=== PATIENT | female | born 1995 | race Caucasian/White ===

== ENCOUNTER 2023-04-18 15:18 | Inpatient (IN) | payer MEDICAID ==
[~2023-04-18 15:18] MED LIST: Bupivacaine 0.25% 10 ML SDV ONE
[2023-04-18] MEDS ORDERED: Nalbuphine HCl 10 MG/ 1ML Amp IVPUSH PRN (15:47)
[2023-04-18] MEDS ORDERED: Ondansetron 4 MG/2 ML SDV IVPUSH PRN (15:47)
[2023-04-18] MEDS ORDERED: Lidocaine 1% 50 ML MDV INJECT PRN (15:47)
[2023-04-18] MEDS ORDERED: Oxytocin/Lactated Ringers 10 UNIT/1,000 ML BAG IV SCH ×2 (16:00)
[2023-04-18 16:07] LABS: BASOPHILS ABSOLUTE AUTO 0.1 K/mm3 (0.0-0.2); BASOPHILS PERCENT AUTO 0.3 % (0.0-1.0); EOSINOPHILS PERCENT AUTO 0.1 % (0.0-6.0); HEMATOCRIT 40.3 % (37.0-47.0); HEMOGLOBIN 14.4 gm/dl (12.0-16.0); IMMATURE GRAN ABSOLUTE AUTO 0.17 K/mm3 (0.00-0.05); IMMATURE GRAN PERCENT AUTO 0.7 % (0.0-0.4); LYMPHOCYTES ABSOLUTE AUTO 1.9 K/mm3 (1.0-4.8); LYMPHOCYTES PERCENT AUTO 7.6 % (24.0-44.0); MEAN CORPUSCULAR HGB CONC 35.7 g/dl (32.0-36.0); MEAN CORPUSCULAR VOLUME 89.6 fl (83.0-99.0); MEAN PLATELET VOLUME 11.1 fl (9.4-12.3); MONOCYTES ABSOLUTE AUTO 1.5 K/mm3 (0.0-0.8); MONOCYTES PERCENT AUTO 5.9 % (0.0-8.0); NEUTROPHILS ABSOLUTE AUTO 21.5 K/mm3 (1.8-7.7); NEUTROPHILS PERCENT AUTO 85.4 % (41.0-71.0); PLATELET COUNT,PLT 270 K/mm3 (150-400); WHITE BLOOD CELL COUNT,WBC 25.18 K/mm3 (3.9-11.3)
[2023-04-18 17:02] LABS: SLIDE REVIEW ABNORMAL SMEAR
[2023-04-18] MEDS: Lactated Ringers 1,000 ML IV SCH ×4 (17:12→23:24)
[2023-04-18] MEDS ORDERED: diphenhydrAMINE 50 MG/ML SDV IVPUSH PRN (17:23)
[2023-04-18] MEDS ORDERED: fentaNYL 100 MCG/2 ML SDV EPIDUR PRN (17:23)
[2023-04-18] MEDS ORDERED: Bupivacaine/fentaNYL/NS 100 ML Bag EPIDUR PRN (17:23)
[2023-04-18] MEDS ORDERED: ePHEDrine 50 MG/ML SDV IVPUSH PRN (17:23)
[2023-04-18] MEDS ORDERED: Metoclopramide 10 MG/2 ML SDV IVPUSH ONE (23:00)
[2023-04-18] MEDS ORDERED: Citric Acid/Sodium Citrate Solution 30 ML Cup PO ONE (23:00)
[2023-04-18] MEDS ORDERED: Lactated Ringers 1,000 ML IV SCH (23:00)
[2023-04-18] MEDS ORDERED: ceFAZolin 2 GM in Sodium Chloride 0.9% 50 ML IV ONE (23:00)
[2023-04-18] MEDS ORDERED: Sodium Chloride 0.9% 10 ML Syringe FLUSH PRN (23:00)
[2023-04-18] MEDS ORDERED: Lactated Ringers 1,000 ML ONE (23:01)
[2023-04-18] MEDS ORDERED: Oxytocin 10 Units/1 ML SDV ONE (23:01)
[2023-04-18] MEDS ORDERED: Ondansetron 4 MG/2 ML SDV ONE (23:01)
[2023-04-18] MEDS ORDERED: Lidocaine 2% with EPINEPHrine 1:200,000 20 ML SDV ONE (23:03)
[2023-04-18] MEDS ORDERED: Sodium Bicarbonate 8.4% 50 MEQ/50 ML SDV ONE (23:03)
[2023-04-18] MEDS ORDERED: Azithromycin 500 MG in Sodium Chloride 0.9% 250 ML IV ONE (23:05)
[2023-04-18] MEDS ORDERED: ceFAZolin 2 GM Vial ONE (23:05)
[2023-04-18] MEDS ORDERED: Morphine PF 10 MG/10 ML SDV ONE (23:07)
[2023-04-18] MEDS ORDERED: Azithromycin 500 MG Vial ONE (23:13)
[2023-04-18] MEDS ORDERED: Sodium Chloride 0.9% 250 ML ONE (23:14)
[2023-04-18] MEDS ORDERED: fentaNYL 100 MCG/2 ML SDV ONE (23:43)
[2023-04-18] MEDS ORDERED: Phenylephrine 1% 10 MG/ML SDV ONE (23:45)
[2023-04-19] MEDS ORDERED: diphenhydrAMINE 50 MG/ML SDV IVPUSH PRN ×2 (00:01→00:53)
[2023-04-19] MEDS ORDERED: fentaNYL 100 MCG/2 ML SDV IVPUSH PRN (00:01)
[2023-04-19] MEDS ORDERED: Ondansetron 4 MG/2 ML SDV IVPUSH PRN (00:01)
[2023-04-19] MEDS ORDERED: Meperidine 50 MG/ML Vial IVPUSH PRN (00:01)
[2023-04-19] MEDS ORDERED: Oxytocin 10 Units/1 ML SDV ONE (00:02)
[2023-04-19] MEDS ORDERED: Meperidine 50 MG/ML Vial ONE (00:10)
[2023-04-19] MEDS ORDERED: Lactated Ringers 1,000 ML ONE (00:13)
[2023-04-19] MEDS ORDERED: Naloxone 0.4 MG/ML SDV IVPUSH PRN (00:53)
[2023-04-19] MEDS ORDERED: ePHEDrine 50 MG/ML SDV IVPUSH PRN (00:53)
[2023-04-19] MEDS ORDERED: Acetaminophen/oxyCODONE 325-5 MG Tab PO PRN (00:53)
[2023-04-19] MEDS ORDERED: Dextrose 5%-Lactated Ringers 1,000 ML IV SCH (01:00)
[2023-04-19] MEDS: Ketorolac 30 MG/ML SDV IVPUSH SCH ×3 (04:23→16:18)
[2023-04-19] MEDS: ceFAZolin 1 GM in Sodium Chloride 0.9% 50 ML IV SCH ×2 (06:19→14:41)
[2023-04-19] MEDS ORDERED: Sodium Chloride 0.9% 10 ML Syringe FLUSH SCH (09:00)
[2023-04-19] MEDS: Prenatal Multivitamin with Calcium/Folic Acid/Iron Tab PO SCH (09:53)
[2023-04-19] MEDS: Docusate Sodium 100 MG Cap PO SCH ×2 (09:53→21:38)
[2023-04-19 12:09] LABS: BASOPHILS ABSOLUTE AUTO 0.1 K/mm3 (0.0-0.2); BASOPHILS PERCENT AUTO 0.2 % (0.0-1.0); EOSINOPHILS PERCENT AUTO 0.1 % (0.0-6.0); HEMATOCRIT 32.8 % (37.0-47.0); IMMATURE GRAN ABSOLUTE AUTO 0.21 K/mm3 (0.00-0.05); IMMATURE GRAN PERCENT AUTO 0.8 % (0.0-0.4); LYMPHOCYTES ABSOLUTE AUTO 1.7 K/mm3 (1.0-4.8); LYMPHOCYTES PERCENT AUTO 6.4 % (24.0-44.0); MEAN CORPUSCULAR HEMOGLOBIN 32.3 pg (28.0-32.0); MEAN CORPUSCULAR HGB CONC 35.4 g/dl (32.0-36.0); MEAN CORPUSCULAR VOLUME 91.4 fl (83.0-99.0); MEAN PLATELET VOLUME 10.9 fl (9.4-12.3); MONOCYTES ABSOLUTE AUTO 1.9 K/mm3 (0.0-0.8); MONOCYTES PERCENT AUTO 7.2 % (0.0-8.0); NEUTROPHILS ABSOLUTE AUTO 23.1 K/mm3 (1.8-7.7); NEUTROPHILS PERCENT AUTO 85.3 % (41.0-71.0); RED BLOOD CELL COUNT 3.59 M/mm3 (4.10-5.30); WHITE BLOOD CELL COUNT,WBC 27.05 K/mm3 (3.9-11.3)
[2023-04-19 12:38] LABS: HEMOGLOBIN 11.6 gm/dl (12.0-16.0)
[2023-04-19 12:39] LABS: PLATELET COUNT,PLT 195 K/mm3 (150-400)
[2023-04-19 12:41] LABS: SLIDE REVIEW ABNORMAL SMEAR
[2023-04-19] MEDS ORDERED: Ketorolac 30 MG/ML SDV IVPUSH ONE (16:15)
[2023-04-19] MEDS: Simethicone 80 MG Tab.Chew PO PRN ×2 (17:12→21:38)
[2023-04-19] MEDS: Ibuprofen 600 MG Tab PO SCH (21:38)
[2023-04-20] MEDS ORDERED: Acetaminophen/oxyCODONE 325-5 MG Tab PO ONE (00:15)
[2023-04-20] MEDS: Ibuprofen 600 MG Tab PO SCH ×2 (04:41→10:41)
[2023-04-20] MEDS ORDERED: Acetaminophen/oxyCODONE 325-5 MG Tab PO PRN (06:00)
[2023-04-20 06:15] LABS: HEMATOCRIT 29.5 % (37.0-47.0); HEMOGLOBIN 10.2 gm/dl (12.0-16.0); MEAN CORPUSCULAR HEMOGLOBIN 32.1 pg (28.0-32.0); MEAN CORPUSCULAR HGB CONC 34.6 g/dl (32.0-36.0); MEAN CORPUSCULAR VOLUME 92.8 fl (83.0-99.0); MEAN PLATELET VOLUME 10.2 fl (9.4-12.3); PLATELET COUNT,PLT 167 K/mm3 (150-400); RED BLOOD CELL COUNT 3.18 M/mm3 (4.10-5.30); WHITE BLOOD CELL COUNT,WBC 21.42 K/mm3 (3.9-11.3)
[2023-04-20 07:08] LABS: BAND PERCENT MAN 1 % (0-10); BASOPHILS PERCENT MAN 1 (0.1-1.2); EOSINOPHILS PERCENT MAN 2 % (0.7-5.8); LYMPHOCYTES % ATYPICAL MANUAL 0 %; LYMPHOCYTES PERCENT MAN 6 % (20-40); MONOCYTES PERCENT MAN 3 % (2-10)
[2023-04-20 07:13] LABS: PLATELET COUNT ESTIMATE ADEQUATE; TOXIC GRANULATION 1+ SLIGHT
[2023-04-20] MEDS: Docusate Sodium 100 MG Cap PO SCH (10:41)
[2023-04-20] MEDS: Prenatal Multivitamin with Calcium/Folic Acid/Iron Tab PO SCH (10:41)
[2023-04-20] MEDS ORDERED: Ibuprofen 600 MG Tab PO SCH (17:00)
== END 2023-04-20 15:10 | disposition home or self-care (01) | DRG 787 ==
LOC: JD.OBCHECK 15:18 → JD.OB 15:20 → JD.OBCHECK 16:00 → INTOOBSV 18:52 → OBSVTOIN 18:52 → JD.OB 18:53 → OBSVTOIN 23:00 → JD.OB 23:01
PROVIDERS: ADMIT Obstetrics & Gynecology; ATTEND Obstetrics & Gynecology
PROC: 10D00Z1 Extraction of Products of Conception, Low, Open Approach (ICD-10-PCS; principal; 2023-04-19)
PROC: 3E0R3BZ Introduction of Anesthetic Agent into Spinal Canal, Percutaneous Approach (ICD-10-PCS; 2023-04-19)
PROC: 00HU33Z Insertion of Infusion Device into Spinal Canal, Percutaneous Approach (ICD-10-PCS; 2023-04-19)
DX: O62.1 Secondary uterine inertia (principal); Z3A.37 37 weeks gestation of pregnancy; Z37.0 Single live birth; O98.32 Other infections with a predominantly sexual mode of transmission complicating childbirth; O76 Abnormality in fetal heart rate and rhythm complicating labor and delivery; O77.0 Labor and delivery complicated by meconium in amniotic fluid
CPT/HCPCS: 36415; 51702; 59025; 84112; 85007; 85025; 85027; 86592; 86850; 86900; 86901; A9270-GY; J0456; J0690; J1885; J2175; J2274; J2371; J2405; J2590; J2765; J3010; J3490; J7050; J7120

== ENCOUNTER 2024-05-29 08:18 | Emergency (ER) | payer MEDICAID ==
[2024-05-29] MEDS ORDERED: Sodium Chloride 0.9% Irrigation 1,000 ML Container IRR PRN (09:16)
[2024-05-29 09:21] LABS: MEAN CORPUSCULAR HEMOGLOBIN 29.6 pg (28.0-32.0); MEAN CORPUSCULAR HGB CONC 34.1 g/dl (32.0-36.0); MEAN PLATELET VOLUME 9.7 fl (9.4-12.3); PLATELET COUNT,PLT 259 K/mm3 (150-400); RED BLOOD CELL COUNT 5.06 M/mm3 (4.10-5.30); WHITE BLOOD CELL COUNT,WBC 18.85 K/mm3 (3.9-11.3)
[2024-05-29] MEDS: Sodium Chloride 0.9% 1,000 ML IV ONE (09:27)
[2024-05-29] MEDS: Sodium Chloride 0.9% 10 ML Syringe FLUSH PRN (09:28)
[2024-05-29] MEDS: Ondansetron 4 MG/2 ML SDV IVPUSH ONE (09:39)
[2024-05-29 09:41] LABS: A/G RATIO 0.9 (1-2); ALBUMIN 3.3 g/dl (3.4-5.0); ANION GAP 14.9 (5-15); BILIRUBIN TOTAL 1.3 mg/dL (0.2-1.0); CALCIUM 8.7 mg/dL (8.5-10.1); CREATININE 0.7 mg/dL (0.55-1.02); EST CRCL DRUG DOSING (CG) 125.04 mL/min; POTASSIUM,K 3.9 mEq/L (3.5-5.1); PROTEIN TOTAL,TP 7.1 g/dl (6.4-8.2)
== END 2024-05-29 11:12 | disposition home or self-care (01) ==
LOC: JD.ED 08:18
DX: O98.512 Other viral diseases complicating pregnancy, second trimester (principal); A08.4 Viral intestinal infection, unspecified; Z79.899 Other long term (current) drug therapy; Z3A.19 19 weeks gestation of pregnancy
CPT/HCPCS: 36415; 76805; 80053; 83690; 85027; 96360; 99284; J3490; J7030

== ENCOUNTER 2024-10-03 23:52 | Inpatient (IN) | payer MEDICAID ==
[2024-10-04] MEDS ORDERED: Ondansetron 4 MG/2 ML SDV IVPUSH PRN (03:41)
[2024-10-04] MEDS ORDERED: Lidocaine 1% 50 ML MDV INJECT PRN (03:41)
[2024-10-04] MEDS ORDERED: Nalbuphine 10 MG/1 ML Vial IVPUSH PRN (03:41)
[2024-10-04] MEDS ORDERED: Sodium Chloride 0.9% 10 ML Syringe FLUSH PRN (03:41)
[2024-10-04] MEDS ORDERED: Oxytocin/0.9 % Sodium Chloride 30 UNIT/500 ML BAG IV SCH (03:45)
[2024-10-04] MEDS: Penicillin G Potassium 5 MILLUNITS in Sodium Chloride 0.9% 100 ML IV SCH (04:47)
[2024-10-04 04:48] LABS: BASOPHILS ABSOLUTE AUTO 0.1 K/mm3 (0.0-0.2); BASOPHILS PERCENT AUTO 0.3 % (0.0-1.0); EOSINOPHILS ABSOLUTE AUTO 0.1 K/mm3 (0.0-0.4); EOSINOPHILS PERCENT AUTO 0.5 % (0.0-6.0); HEMATOCRIT 38.6 % (37.0-47.0); HEMOGLOBIN 12.7 gm/dl (12.0-16.0); IMMATURE GRAN ABSOLUTE AUTO 0.15 K/mm3 (0.00-0.05); IMMATURE GRAN PERCENT AUTO 0.8 % (0.0-0.4); LYMPHOCYTES ABSOLUTE AUTO 2.6 K/mm3 (1.0-4.8); LYMPHOCYTES PERCENT AUTO 13.8 % (24.0-44.0); MEAN CORPUSCULAR HEMOGLOBIN 29.3 pg (28.0-32.0); MEAN CORPUSCULAR HGB CONC 32.9 g/dl (32.0-36.0); MEAN CORPUSCULAR VOLUME 88.9 fl (83.0-99.0); MEAN PLATELET VOLUME 11.1 fl (9.4-12.3); MONOCYTES ABSOLUTE AUTO 1.1 K/mm3 (0.0-0.8); MONOCYTES PERCENT AUTO 5.8 % (0.0-8.0); NEUTROPHILS ABSOLUTE AUTO 15.1 K/mm3 (1.8-7.7); NEUTROPHILS PERCENT AUTO 78.8 % (41.0-71.0); PLATELET COUNT,PLT 246 K/mm3 (150-400); RED BLOOD CELL COUNT 4.34 M/mm3 (4.10-5.30); WHITE BLOOD CELL COUNT,WBC 19.07 K/mm3 (3.9-11.3)
[2024-10-04] MEDS ORDERED: Penicillin G Potassium 2.5 MILLUNITS in Sodium Chloride 0.9% 100 ML IV SCH (08:00)
[2024-10-04] MEDS: Lactated Ringers 1,000 ML IV SCH (08:34)
[2024-10-04] MEDS: Penicillin G Potassium 2.5 MILLUNITS in Sodium Chloride 0.9% 100 ML IV SCH (08:34)
[2024-10-04] MEDS: Sodium Chloride 0.9% 10 ML Syringe FLUSH SCH (10:57)
[2024-10-04] MEDS: Oxytocin/0.9 % Sodium Chloride 30 UNIT/500 ML BAG IV SCH (16:14)
[2024-10-04] MEDS ORDERED: Acetaminophen 325 MG Tab PO PRN (17:03)
[2024-10-04] MEDS: Ibuprofen 600 MG Tab PO SCH (17:36)
[2024-10-04] MEDS: Benzocaine/Menthol 20%-0.5% Spray 78 GM Cannister TOP PRN (17:37)
[2024-10-04] MEDS: Witch Hazel Medicated Pads 40/Jar TOP PRN (17:37)
[2024-10-05] MEDS: Docusate Sodium 100 MG Cap PO ONE (08:27)
== END 2024-10-05 17:20 | disposition home or self-care (01) | DRG 807 ==
LOC: JD.OBCHECK 23:52 → JD.OB 10-04 07:14 → OBSVTOIN 10-04 16:45 → JD.OB 10-04 16:46
PROVIDERS: ADMIT Obstetrics & Gynecology; ATTEND Obstetrics & Gynecology
PROC: 10E0XZZ Delivery of Products of Conception, External Approach (ICD-10-PCS; principal; 2024-10-04)
PROC: 3E0R3BZ Introduction of Anesthetic Agent into Spinal Canal, Percutaneous Approach (ICD-10-PCS; principal; 2024-10-04)
DX: O80 Encounter for full-term uncomplicated delivery (principal); Z37.0 Single live birth; Z98.890 Other specified postprocedural states; Z79.899 Other long term (current) drug therapy; Z3A.38 38 weeks gestation of pregnancy
CPT/HCPCS: 36415; 59025; 59409; 85025; 86592; 86850; 86900; 86901; A9270-GY; J2540; J7120; J7999